=== PATIENT | female | born 1970 | race Two or more races ===

== ENCOUNTER → 2017-05-29 | Outpatient (CLI) | payer OTHER ==
--- NOTE | ~2017-05-29 | MY29 ---
[facility] A Service of [facility] RADIOLOGY TEXT RESULTS PATIENT: DAIN FOY LOCATION: [facility] : 74 UNIT #: [id number] AGE: [address]: EDDI NAVARRETE APRN SEX: F ORDER DR: [id number] [place], [place] [address] [id number] O MR#: [id number] Acc #: [id number] NAME: DAIN FOY : 1970 SEX: F STUDY DATE/TIME: 05/29/2017 15:37 UNIT: [facility] ROOM: STUDY DESCRIPTION: MY MICHELLE SCREENING W/ CAD BILAT Attending Physician: Eddi Navarrete Referring Physician: Eddi Navarrete Ordering Physician: Ofe Navarrete M.D. Primary Care Physician: Eddi Navarrete MEDICAL IMAGING REPORT This report is preliminary unless electronic signature is present EXAM Bilateral Digital Screening Mammogram with CAD INDICATION Breast cancer screening. A 47 asymptomatic female. No personal or family history of breast cancer. COMPARISON 03/09/16, 05/27/13, 03/26/12. FINDINGS There are scattered fibroglandular tissues. No suspicious findings are present. IMPRESSION No mammographic evidence of malignancy. Annual screening mammography and clinical breast exam are recommended. A result letter will be sent to the patient. Patients over the age of 40 are entered into a reminder system with target due date for the next mammogram. BIRADS: 1 Negative Dictated by... Cesar Guo M.D. THIS IS AN ELECTRONICALLY VERIFIED REPORT [facility] A Service of [facility] RADIOLOGY TEXT RESULTS PATIENT: DAIN FOY LOCATION: [facility] : 74 UNIT #: [id number] AGE: [address]: EDDI NAVARRETE APRN SEX: F ORDER DR: Cesar Guo M.D. at 06/01/2017 7:37 PM [place] TD: 05/30/2017 05:16 JOB #: [id number] MEDICAL IMAGING REPORT Page 1 of 1 COPY
== END | disposition home or self-care (01) ==
LOC: CWCC 14:51
DX: Z12.31 Encounter for screening mammogram for malignant neoplasm of breast (principal)
CPT/HCPCS: G0202